=== PATIENT | female | born 1995 | race Caucasian/White ===

== ENCOUNTER 2018-02-27 23:50 | Inpatient (IN) | payer SELFPAY ==
[~2018-02-27] VITALS: Ht 165.1 cm; Wt 72.6 kg
[2018-02-28] VITALS (9 sets, daily range): BP systolic 96–127; BP diastolic 50–76; BMI 26.6
[2018-02-28 01:17] LABS: HEMATOCRIT 39.9 % (36.0-48.0); HEMOGLOBIN 13.7 g/dL (12-16); MCH 29.8 pg (26.0-34.0); MCHC 34.3 g/dL (31.0-37.0); MCV 86.9 fL (80.0-100.0); MEAN PLATELET VOLUME 9.1 fL (7.4-10.4); PLATELET COUNT 342 10x3/uL (130-400); RBC 4.59 10x6/uL (4.00-5.40); RDW 12.7 % (11.5-14.5); WBC 23.8 10x3/uL (4.8-10.8)
[2018-02-28 01:25] LABS: ALBUMIN 4.1 g/dL (3.4-5.0); ALKALINE PHOSPHATASE 53 U/L (46-116); ALT (SGPT) 20 U/L (10-68); AMYLASE - SERUM 67 U/L (25-115); BILIRUBIN - TOTAL 1.02 mg/dL (0.2-1.3); CALC OSMOLALITY 272 mosm/kg (275-300); CALCIUM 8.5 mg/dL (8.5-10.1); CHLORIDE - SERUM 102 mmol/L (98-107); CREATININE - SERUM 0.8 mg/dL (0.6-1.3); GLUCOSE 121 mg/dL (74-106); LIPASE 88 U/L (73-393); PROTEIN - SERUM 7.6 g/dL (6.4-8.2); SODIUM 137 mmol/L (136-145); UREA NITROGEN 8 mg/dL (7-18); eGFR NON AFRICAN AMERICAN > 90 mL/min (90-120)
[2018-02-28 01:28] LABS: APPEARANCE HAZY (CLEAR); BILIRUBIN NEGATIVE (NEGATIVE); COLOR YELLOW (YELLOW); GLUCOSE NEGATIVE (NEGATIVE); KETONE SMALL mg/dL (NEGATIVE); NITRITE NEGATIVE (NEGATIVE); PROTEIN TRACE mg/dL (NEGATIVE); UROBILINOGEN NORMAL (NORMAL)
[2018-02-28 01:29] LABS: BACTERIA FEW /hpf (NONE SEEN); EPITHELIAL CELLS 0-5 /hpf (0-5); MUCUS >1+ /lpf (NONE SEEN)
[2018-02-28 01:40] LABS: LYMPHOCYTES 11 % (15-50); MONOCYTES 3 % (2-11); NEUTROPHILS 86 % (40-80); PLATELET ESTIMATE NORMAL
[2018-02-28 03:15] LABS: HCG SERUM NEGATIVE (NEGATIVE)
[2018-03-01 04:33] LABS: BASOPHILS 0.2 % (0-2); EOSINOPHILS 1.1 % (0-7); HEMATOCRIT 34.3 % (36.0-48.0); HEMOGLOBIN 11.3 g/dL (12-16); IMMATURE GRANULOCYTES 0.2 % (0-5); LYMPHOCYTES 32.2 % (15-50); MCHC 32.9 g/dL (31.0-37.0); MCV 87.9 fL (80.0-100.0); MEAN PLATELET VOLUME 9.5 fL (7.4-10.4); MONOCYTES 6.5 % (2-11); NEUTROPHILS 59.8 % (40-80); RDW 13.1 % (11.5-14.5)
[2018-03-01 04:34] LABS: PLATELET COUNT 253 10x3/uL (130-400); WBC 11.8 10x3/uL (4.8-10.8)
[2018-03-01 04:57] LABS: ALBUMIN 3.1 g/dL (3.4-5.0); ALKALINE PHOSPHATASE 38 U/L (46-116); ALT (SGPT) 16 U/L (10-68); BILIRUBIN - TOTAL 1.19 mg/dL (0.2-1.3); CALC OSMOLALITY 272 mosm/kg (275-300); CALCIUM 7.8 mg/dL (8.5-10.1); CARBON DIOXIDE 25.2 mmol/L (21.0-32.0); CHLORIDE - SERUM 106 mmol/L (98-107); CREATININE - SERUM 0.7 mg/dL (0.6-1.3); GLUCOSE 85 mg/dL (74-106); POTASSIUM - SERUM 3.5 mmol/L (3.5-5.1); PROTEIN - SERUM 5.9 g/dL (6.4-8.2); SODIUM 138 mmol/L (136-145); T4 THYROXIN - FREE 1.04 ng/dL (0.76-1.46); THYROID STIMULATING HORMONE 2.09 uIU/mL (0.36-3.74); UREA NITROGEN 6 mg/dL (7-18); eGFR NON AFRICAN AMERICAN > 90 mL/min (90-120)
[2018-03-01 09:23] VITALS: BP 105/61
[2018-03-01 12:25] VITALS: BP 115/73
[2018-03-01 12:46] VITALS: Ht 165.1 cm; Wt 72.6 kg
[2018-03-01 14:03] LABS: APPEARANCE HAZY (CLEAR); BACTERIA FEW /hpf (NONE SEEN); BILIRUBIN NEGATIVE (NEGATIVE); COLOR DK YELLOW (YELLOW); EPITHELIAL CELLS 0-5 /hpf (0-5); GLUCOSE NEGATIVE (NEGATIVE); KETONE MODERATE mg/dL (NEGATIVE); NITRITE NEGATIVE (NEGATIVE); PROTEIN NEGATIVE (NEGATIVE); RED CELLS - URINE 25-50 /hpf (0-5); UROBILINOGEN NORMAL (NORMAL); WHITE CELLS - URINE OCC /hpf (0-5)
[2018-03-01 14:04] LABS: MUCUS >1+ /lpf (NONE SEEN)
[2018-03-01 17:02] VITALS: BP 117/59
[2018-03-02 04:16] LABS: HEMATOCRIT 35.4 % (36.0-48.0); HEMOGLOBIN 12.1 g/dL (12-16); MCH 29.4 pg (26.0-34.0); MCHC 34.2 g/dL (31.0-37.0); MCV 86.1 fL (80.0-100.0); NEUTROPHILS 56.5 % (40-80); PLATELET COUNT 263 10x3/uL (130-400); RBC 4.11 10x6/uL (4.00-5.40); RDW 12.6 % (11.5-14.5); WBC 9.6 10x3/uL (4.8-10.8)
[2018-03-02 04:29] LABS: ALBUMIN 3.3 g/dL (3.4-5.0); ALKALINE PHOSPHATASE 42 U/L (46-116); ALT (SGPT) 18 U/L (10-68); BILIRUBIN - TOTAL 1.54 mg/dL (0.2-1.3); CALC OSMOLALITY 276 mosm/kg (275-300); CALCIUM 7.6 mg/dL (8.5-10.1); CARBON DIOXIDE 23.8 mmol/L (21.0-32.0); CHLORIDE - SERUM 106 mmol/L (98-107); CREATININE - SERUM 0.8 mg/dL (0.6-1.3); GLUCOSE 121 mg/dL (74-106); MAGNESIUM - SERUM 1.7 mg/dL (1.8-2.4); PHOSPHOROUS 2.1 mg/dL (2.5-4.9); PROTEIN - SERUM 6.3 g/dL (6.4-8.2); SODIUM 139 mmol/L (136-145); UREA NITROGEN 7 mg/dL (7-18); eGFR NON AFRICAN AMERICAN > 90 mL/min (90-120)
[2018-03-02 04:31] LABS: POTASSIUM - SERUM 2.9 mmol/L (3.5-5.1)
[2018-03-02 04:45] VITALS: BP 96/48
[2018-03-02 08:52] VITALS: BP 89/44
[2018-03-02 15:46] VITALS: BP 105/53
[2018-03-03 01:00] VITALS: BP 113/75
[2018-03-03 05:04] VITALS: BP 124/80
[2018-03-03 05:29] LABS: BASOPHILS 0.2 % (0-2); EOSINOPHILS 3.5 % (0-7); HEMATOCRIT 35.4 % (36.0-48.0); HEMOGLOBIN 11.9 g/dL (12-16); IMMATURE GRANULOCYTES 0.3 % (0-5); MCHC 33.6 g/dL (31.0-37.0); MCV 86.3 fL (80.0-100.0); MEAN PLATELET VOLUME 9.6 fL (7.4-10.4); MONOCYTES 6.9 % (2-11); NEUTROPHILS 52.1 % (40-80); PLATELET COUNT 272 10x3/uL (130-400); RDW 12.4 % (11.5-14.5); WBC 9.5 10x3/uL (4.8-10.8)
[2018-03-03 05:51] LABS: ALBUMIN 3.2 g/dL (3.4-5.0); ALKALINE PHOSPHATASE 44 U/L (46-116); ALT (SGPT) 21 U/L (10-68); BILIRUBIN - TOTAL 1.09 mg/dL (0.2-1.3); CALCIUM 7.9 mg/dL (8.5-10.1); CARBON DIOXIDE 25.7 mmol/L (21.0-32.0); CHLORIDE - SERUM 106 mmol/L (98-107); CREATININE - SERUM 0.8 mg/dL (0.6-1.3); GLUCOSE 102 mg/dL (74-106); MAGNESIUM - SERUM 1.8 mg/dL (1.8-2.4); PROTEIN - SERUM 6.3 g/dL (6.4-8.2); SODIUM 138 mmol/L (136-145); eGFR NON AFRICAN AMERICAN > 90 mL/min (90-120)
[2018-03-03 05:53] LABS: CALC OSMOLALITY 272 mosm/kg (275-300); PHOSPHOROUS 2.9 mg/dL (2.5-4.9); POTASSIUM - SERUM 3.8 mmol/L (3.5-5.1); UREA NITROGEN 4 mg/dL (7-18)
[2018-03-03 08:44] VITALS: BP 134/65
[2018-03-03 09:30] VITALS: BP 106/57
[2018-03-03] MEDS ORDERED: OMEPRAZOLE20 M1 PO (11:06)
[2018-03-03] MEDS ORDERED: PHENADOZ25 MG/SUPP RC (11:06)
== END 2018-03-03 13:02 | disposition home or self-care (01) | DRG 392 ==
LOC: OBSVTIME → D.ER 23:50 → D.MS 02-28 05:16 → D.EDHOLD 02-28 05:16 → D.ER 02-28 05:16 → D.EDHOLD 02-28 05:16 → OBSVTIME 02-28 05:16 → D.EDHOLD 02-28 14:29 → D.MS 02-28 14:29
PROVIDERS: Family Medicine
DX: K29.00 Acute gastritis without bleeding (principal); K44.9 Diaphragmatic hernia without obstruction or gangrene; K21.9 Gastro-esophageal reflux disease without esophagitis; E87.6 Hypokalemia

== ENCOUNTER 2019-01-18 19:09 | Inpatient (IN) | payer SELFPAY ==
[~2019-01-18] VITALS: Ht 165.1 cm; Wt 72.6 kg
[~2019-01-18 19:09] MED LIST: OMEPRAZOLE20 M1 PO; PHENADOZ25 MG/SUPP RC
[2019-01-18 19:51] LABS: APPEARANCE CLEAR (CLEAR); BILIRUBIN NEGATIVE (NEGATIVE); COLOR YELLOW (YELLOW); GLUCOSE NEGATIVE (NEGATIVE); KETONE LARGE mg/dL (NEGATIVE); NITRITE NEGATIVE (NEGATIVE); PROTEIN NEGATIVE (NEGATIVE); SPECIFIC GRAVITY 1.025 (1.005-1.020); UROBILINOGEN NORMAL (NORMAL)
[2019-01-18 19:54] LABS: EPITHELIAL CELLS 0-5 /hpf (0-5); WHITE CELLS - URINE OCC /hpf (0-5)
[2019-01-18 19:55] LABS: BACTERIA FEW /hpf (NONE SEEN); YEAST OCC /hpf (NONE SEEN)
[2019-01-18 19:56] LABS: MUCUS >1+ /lpf (NONE SEEN)
[2019-01-18 20:08] LABS: BASOPHILS 0.1 % (0-2); EOSINOPHILS 0 % (0-7); HEMATOCRIT 38.3 % (36.0-48.0); IMMATURE GRANULOCYTES 0.3 % (0-5); LYMPHOCYTES 8.5 % (15-50); MCH 29.4 pg (26.0-34.0); MCHC 33.9 g/dL (31.0-37.0); MCV 86.7 fL (80.0-100.0); MEAN PLATELET VOLUME 8.7 fL (7.4-10.4); MONOCYTES 2.2 % (2-11); NEUTROPHILS 88.9 % (40-80); PLATELET COUNT 324 10x3/uL (130-400); RBC 4.42 10x6/uL (4.00-5.40); RDW 13.4 % (11.5-14.5); WBC 14.4 10x3/uL (4.8-10.8)
[2019-01-18 20:59] LABS: ALBUMIN 4.2 g/dL (3.4-5.0); ALKALINE PHOSPHATASE 54 U/L (46-116); ALT (SGPT) 13 U/L (10-68); AMYLASE - SERUM 44 U/L (25-115); BILIRUBIN - TOTAL 1.12 mg/dL (0.2-1.3); CALC OSMOLALITY 274 mosm/kg (275-300); CALCIUM 8.8 mg/dL (8.5-10.1); CARBON DIOXIDE 21.3 mmol/L (21.0-32.0); CHLORIDE - SERUM 103 mmol/L (98-107); CREATININE - SERUM 0.7 mg/dL (0.6-1.3); GLUCOSE 105 mg/dL (74-106); LIPASE 70 U/L (73-393); POTASSIUM - SERUM 4.1 mmol/L (3.5-5.1); PROTEIN - SERUM 7.8 g/dL (6.4-8.2); SODIUM 138 mmol/L (136-145); UREA NITROGEN 9 mg/dL (7-18); eGFR NON AFRICAN AMERICAN > 90 mL/min (90-120)
[2019-01-19] VITALS (7 sets, daily range): BP systolic 90–119; BP diastolic 45–81; Ht 165.1 cm; Wt 72.6 kg
--- NOTE | 2019-01-19 00:02 | NUR ---
PT HAS ARRIVED TO FLOOR BY BED FROM ER, REPORT TAKEN FROM MARTHA RICE RN. INTRODUCED SELF TO PT. PT DENIES FURTHER NEEDS AT THIS TIME. BED IN LOW POSITION. RIGHT AC PIV INFUSING NORMAL SALINE AND ONDANSETRON ORDERED. CALL LIGHT IN REACH. WILL CTM.
--- NOTE | 2019-01-19 04:32 | NUR ---
I have reviewed this patient and I concur with the Shift Assessment completed by the Licensed Practical Nurse today this shift.
[2019-01-19 05:14] LABS: BASOPHILS 0.1 % (0-2); EOSINOPHILS 0.1 % (0-7); HEMATOCRIT 32.8 % (36.0-48.0); IMMATURE GRANULOCYTES 0.1 % (0-5); LYMPHOCYTES 24.5 % (15-50); MCHC 33.5 g/dL (31.0-37.0); MCV 86.5 fL (80.0-100.0); MEAN PLATELET VOLUME 8.8 fL (7.4-10.4); MONOCYTES 6.7 % (2-11); NEUTROPHILS 68.5 % (40-80); PLATELET COUNT 292 10x3/uL (130-400); RBC 3.79 10x6/uL (4.00-5.40); RDW 13.5 % (11.5-14.5); WBC 14.1 10x3/uL (4.8-10.8)
[2019-01-19 05:27] LABS: ALKALINE PHOSPHATASE 40 U/L (46-116); ALT (SGPT) 11 U/L (10-68); BILIRUBIN - TOTAL 1.12 mg/dL (0.2-1.3); CALC OSMOLALITY 274 mosm/kg (275-300); CALCIUM 8.1 mg/dL (8.5-10.1); CARBON DIOXIDE 23.9 mmol/L (21.0-32.0); CHLORIDE - SERUM 106 mmol/L (98-107); CREATININE - SERUM 0.6 mg/dL (0.6-1.3); GLUCOSE 81 mg/dL (74-106); POTASSIUM - SERUM 3.7 mmol/L (3.5-5.1); SODIUM 139 mmol/L (136-145); UREA NITROGEN 7 mg/dL (7-18); eGFR NON AFRICAN AMERICAN > 90 mL/min (90-120)
[2019-01-19 05:43] LABS: ALBUMIN 3.1 g/dL (3.4-5.0)
--- NOTE | 2019-01-19 07:00 | NUR ---
RECEIVED REPORT. ASSUMED CARE OF PATIENT. CALL LIGHT WITHIN REACH. RESTING WITH EYES CLOSED. EASILY AROUSED. RESP EVEN AND UNLABORED. NO DISTRESS. IV FLUIDS INFUSING ORDERED. NO DISTRESS.
--- NOTE | 2019-01-19 08:00 | NUR ---
PATIENT HAS ORDER FOR TELEMETRY, HOWEVER, WE HAVE NO TELEMETRY UNIT AVAILABLE AT THIS TIME. TELEMETRY NOTIFIED OF ORDER AND WHEN A UNIT BECOMES AVAILABLE, UNIT WILL BE PROVIDED FOR PATIENT.
--- NOTE | 2019-01-19 09:13 | NUR ---
MEDICATED FOR PAIN AT THIS TIME. NO DISTRESS. CALL LIGHT WITHIN REACH.
[2019-01-19 10:05] LABS: HCG URINE NEGATIVE (NEGATIVE)
--- NOTE | 2019-01-19 10:31 | MORECARE ---
CASE MANAGEMENT DISCHARGE SUMMARY PATIENT: EZRA WILKS N UNIT: [id number] ADM DATE: 01/18/19 AGE: 23 : [birth year] SEX: F ROOM/BED: D.2133 AUTHOR: LARISA RICO PHYSICIAN: REFERRING PHYSICIAN: DIAMOND LEVINE MD DATE OF SERVICE: 01/19/19 Discharge Plan Patient Name: EZRA WILKS Facility: [facility]:[place] : 1995 Planned Disposition: Home Anticipated Discharge Date: Discharge Date: Expected LOS: Initial Reviewer: [email or web address] Initial Review Date: 01/18/2019 Generated: 01/19/19 11:31 am DCPIA - Discharge Planning Initial Assessment Updated by [email or web address]: iLssette Kennedy on 01/19/19 10:31 am * Is the patient Alert and Oriented? Yes * How many steps to enter\exit or inside your home? * PCP NONE * Pharmacy [facility] * Preadmission Environment Home with Family * ADLs Independent * List name and contact numbers for known caregivers / representatives who currently or will assist patient after discharge: MOTHER SUSHANT [phone] * Verbal permission to speak to the caregivers and representatives has been obtained from the patient. N/A * Additional services required to return to the preadmission environment? No * Can the patient safely return to the preadmission environment? Yes * Has this patient been hospitalized within the prior 30 days at any hospital? No Patient Name: EZRA WILKS Page [id number] at 1031 All edits/amendments must be made on the electronic document DICTATION DATE: 01/19/19 1031 RESIDENTIAL MONITOR: YESENIA 01/19/19 1031 RPT#: [id number] DC DATE: STATUS: ADM IN [facility] [address] [place] [address] END OF REPORT
--- NOTE | 2019-01-19 10:38 | MORECARE ---
CASE MANAGEMENT DISCHARGE SUMMARY PATIENT: EZRA WILKS UNIT: [id number] ADM DATE: 01/18/19 AGE: 23 : [birth year] SEX: F ROOM/BED: D.9773 AUTHOR: LARISA RICO PHYSICIAN: REFERRING PHYSICIAN: DIAMOND LEVINE MD DATE OF SERVICE: 01/19/19 Discharge Plan Patient Name: EZRA WILKS Facility: [facility]:[place] : 1995 Planned Disposition: Home Anticipated Discharge Date: Discharge Date: Expected LOS: Initial Reviewer: [email or web address] Initial Review Date: 01/18/2019 Generated: 01/19/19 11:38 am Comments DCP- Discharge Planning Updated by [email or web address]: Lissette Kennedy on 01/19/19 9:[address] Patient Name: EZRA WILKS Admission Status: ER Accout number: [id number] Admission Date: 01-18-2019 : 1995 Admission Diagnosis: Attending: DIAMOND HOLDER Current LOS: 1 Anticipated DC Date: Planned Disposition: Home Primary Insurance: UNINSURED DISCOUNT PLAN Discharge Planning Comments: CM MET WITH PATIENT FOR ASSESSMENT. PT LIVES INDEPENDENTLY WITH SISTER. STATES HOME WILL BE HER DC PLAN AND FEELS LIKE THIS IS A SAFE DC. PT STATES SHE HAS NO CM NEEDS AT THIS TIME. CM WILL CONTINUE TO FOLLOW Nutrition Therapist: Lissette Kennedy DCPIA - Discharge Planning Initial Assessment Updated by [email or web address]: Lissette Kennedy on 01/19/19 10:31 am * Is the patient Alert and Oriented? Yes * How many steps to enter\exit or inside your home? * PCP NONE * Pharmacy [facility] * Preadmission Environment Home with Family * ADLs Independent * List name and contact numbers for known caregivers / representatives who currently or will assist patient after discharge: MOTHER SUSHANT [phone] * Verbal permission to speak to the caregivers and representatives has been obtained from the patient. N/A * Additional services required to return to the preadmission environment? No * Can the patient safely return to the preadmission environment? Yes * Has this patient been hospitalized within the prior 30 days at any hospital? No Last DP export: 01/19/19 9:31 a Patient Name: EZRA WILKS Page [id number] at 1038 All edits/amendments must be made on the electronic document DICTATION DATE: 01/19/19 1038 APPLICATIONS PROGRAMMER: YESENIA 01/19/19 1038 RPT#: [id number] DC DATE: STATUS: ADM IN [facility] [address] [place] [address] END OF REPORT
--- NOTE | 2019-01-19 11:55 | NUR ---
TELEMETRY APPLIED AT THIS TIME. NO DISTRESS.
--- NOTE | 2019-01-19 13:08 | NUR ---
[facility] HAS NOT YET HAD A BM. UNABLE TO COLLECT STOOL SPECIMEN. PATIENT IS NPO,
--- NOTE | 2019-01-19 19:55 | NUR ---
EVENING ROUNDS COMPLETED. REPORT RECEIVED. PT SITTING UP IN BED WITH EYES OPEN, RR EVEN AND UNLABORED. BED IN LOW POSITION. NO S/S OF DISTRESS NOTED. RT AC PIV INFUSING NORMAL SALINE AND ONDANSETRON ORDERED. INTRODUCED SELF TO PT. PT DENIES FURTHER NEEDS AT THIS TIME. 70 SINUS W/ PACS ON TELEMETRY. CALL LIGHT IN REACH. WILL CTM. CPOC.
--- NOTE | 2019-01-19 21:45 | NUR ---
ADMINISTERED ORDERED ANALGESIC FOR COMPLAINTS OF PAIN IN UPPER ABODMEN, PT STATES PAIN OF A 7 ON A SCALE OF 0-10.
[2019-01-20] VITALS: BP 102/62
--- NOTE | 2019-01-20 00:57 | NUR ---
PT LYING IN BED WITH EYES OPEN, RR EVEN AND UNLABORED. BED IN LOW POSITION. NO S/S OF DISTRESS NOTED. RT AC PIV INFUSING NS AND ONDANSETRON ORDERED. 83 SINUS ON TELEMETRY. CALL LIGHT IN REACH. WILL CTM.
[2019-01-20 04:00] VITALS: BP 122/75
--- NOTE | 2019-01-20 04:58 | NUR ---
I have reviewed this patient and I concur with the Shift Assessment completed by the Licensed Practical Nurse today this shift.
--- NOTE | 2019-01-20 05:43 | NUR ---
PT SITTING UP IN BED WITH EYES OPEN, RR EVEN AND UNLABORED. BED IN LOW POSITION. REFUSED MORNING MEDICATIONS DUE TO BOUTS OF NAUSEA. RIGHT AC PIV INFUSING NS ORDERED. CALL LIGHT IN REACH. WILL CTM.
[2019-01-20 06:10] LABS: BASOPHILS 0.2 % (0-2); EOSINOPHILS 0 % (0-7); HEMATOCRIT 35.8 % (36.0-48.0); HEMOGLOBIN 11.9 g/dL (12-16); IMMATURE GRANULOCYTES 0.2 % (0-5); LYMPHOCYTES 11.6 % (15-50); MCH 28.9 pg (26.0-34.0); MCHC 33.2 g/dL (31.0-37.0); MCV 86.9 fL (80.0-100.0); MONOCYTES 2.9 % (2-11); NEUTROPHILS 85.1 % (40-80); PLATELET COUNT 304 10x3/uL (130-400); RBC 4.12 10x6/uL (4.00-5.40); RDW 13.4 % (11.5-14.5)
[2019-01-20 06:27] LABS: ALBUMIN 3.5 g/dL (3.4-5.0); ALKALINE PHOSPHATASE 47 U/L (46-116); ALT (SGPT) 12 U/L (10-68); BILIRUBIN - TOTAL 1.66 mg/dL (0.2-1.3); CALCIUM 7.9 mg/dL (8.5-10.1); CARBON DIOXIDE 19.6 mmol/L (21.0-32.0); CHLORIDE - SERUM 104 mmol/L (98-107); CREATININE - SERUM 0.7 mg/dL (0.6-1.3); PROTEIN - SERUM 6.6 g/dL (6.4-8.2); SODIUM 138 mmol/L (136-145); UREA NITROGEN 8 mg/dL (7-18); eGFR NON AFRICAN AMERICAN > 90 mL/min (90-120)
[2019-01-20 06:35] LABS: CALC OSMOLALITY 271 mosm/kg (275-300); GLUCOSE 70 mg/dL (74-106)
--- NOTE | 2019-01-20 06:57 | NUR ---
LAB CALLED AND REPORTED GLUCOSE OF 70
--- NOTE | 2019-01-20 07:00 | NUR ---
RECEIVED REPORT. ASSUMED CARE OF PATIENT. ALERT/ORIENTED. DENIES CALMY, DIAPHORESIS, JITTERYNESS. RESTING IN BED WITH EYES OPEN. IV FLUIDS INFUSING ORDERED. NO DISTRESS. CALL LIGHT WITHIN REACH.
--- NOTE | 2019-01-20 07:01 | NUR ---
PAGEGarrett NOLEN AND RECIEVED NEW ORDERS FOR EP AND HYPOGLYCEMIC PROTOCOL. ORDERS ENTERED.
[2019-01-20 08:30] VITALS: BP 95/54
--- NOTE | 2019-01-20 08:31 | NUR ---
FSBS 93 AT THIS TIME. RECHECKED AFTER TREATING WITH 1/2 AMP DEXTROSE
--- NOTE | 2019-01-20 10:40 | NUR ---
PATIENT COMPLAINS OF N/V AND ABD PAIN. MEDICATED FOR PAIN WITH MORPHINE. PATIENT CONTINUES ON ZOFRAN DRIP AT 4.7 CONTINUOUSLY AND IF FLUIDS FOR HYDRATION. COMPLAINS OF PRESSURE TYPE PAIN WHERE TRANSVERSE COLON LYES. BS X 4, SOFT ABD.
[2019-01-20 11:42] VITALS: BP 112/58; BP 136/77
--- NOTE | 2019-01-20 13:59 | NUR ---
20 GAUGE IV PLACED TO LEFT FOREARM X 1 STICK. GOOD BLOOD RETURN, EASY FLUSH.TAPED DATED AND SECURED. 2ND IV SITE NEEDED PROTONIX AND ZOFRAN ARE NOT COMPATIBLE. PROTONIX AND NS INFUSING TO RIGHT AC AND ZOFRAN INFUSING TO LEFT FOREARM AT THIS TIME.
--- NOTE | 2019-01-20 17:36 | NUR ---
PATIENT IS FINALLY RESTING AFTER BEING PLACED ON PROTONIX DRIP EARLIER. NO N/V OR DRY HEAVING. RESTING WITH EYES CLOSED.
[2019-01-20 18:49] VITALS: BP 112/65
[2019-01-20 20:00] VITALS: BP 99/52
--- NOTE | 2019-01-20 20:23 | NUR ---
EVENING ROUNDS COMPLETED. REPORT RECEIVED. PT LYING ON RIGHT SIDE IN BED WITH EYES OPEN, RR EVEN AND UNLABORED. NO S/S OF DISTRESS NOTED. LFA INFUSING NS ORDERED. AT BEDSIDE. INTRODUCED SELF TO PT. PT DENIES FURTHER NEEDS AT THIS TIME. 87 SINUS ON TELEMETRY. CALL LIGHT IN REACH. WILL CTM.
--- NOTE | 2019-01-20 20:27 | NUR ---
EVENING ROUNDS COMPLETED. REPORT RECEIVED. PT SITTING UP IN BED WITH EYES OPEN, RR EVEN AND UNLABORED. BED IN LOW POSITION. RT AC INFUSING NORMAL SALINE AND PROTONIX. LFA INFUSING ONDANSETRON ORDERED. 76 SINUS ON TELEMETRY. INTRODUCED SELF TO PT. PT DENIES FURTHER NEEDS AT THIS TIME. CALL LIGHT IN REACH. WILL CTM.
--- NOTE | 2019-01-20 23:36 | NUR ---
TREATED PT BLOOD SUGAR OF 66 PER HYPOGLYCEMIA PROTOCOL.
[2019-01-20 23:56] LABS: CALCIUM 7.8 mg/dL (8.5-10.1); CARBON DIOXIDE 22.3 mmol/L (21.0-32.0); CHLORIDE - SERUM 103 mmol/L (98-107); CREATININE - SERUM 0.7 mg/dL (0.6-1.3); MAGNESIUM - SERUM 1.4 mg/dL (1.8-2.4); POTASSIUM - SERUM 3.6 mmol/L (3.5-5.1); SODIUM 138 mmol/L (136-145); eGFR NON AFRICAN AMERICAN > 90 mL/min (90-120)
[2019-01-20 23:57] LABS: CALC OSMOLALITY 273 mosm/kg (275-300); GLUCOSE 114 mg/dL (74-106); UREA NITROGEN 5 mg/dL (7-18)
[2019-01-21 00:18] VITALS: BP 121/79
--- NOTE | 2019-01-21 01:04 | NUR ---
PT LYING ON RIGHT SIDE IN BED WITH EYES CLOSED, RR EVEN AND UNLABORED. BED IN LOW POSITION. NO S/S OF DISTRESS NOTED. RECHECKED PT BLOOD SUGAR OF 94. CALL LIGHT IN REACH. WILL CTM.
--- NOTE | 2019-01-21 02:20 | NUR ---
ADMINISTERED ORDERED ANALGESIC FOR COMPLAINTS OF PAIN IN UPPER ABDOMEN, PT STATES PAIN OF 9 ON A SCALE OF 0-10.
[2019-01-21 04:00] VITALS: BP 116/68
--- NOTE | 2019-01-21 04:35 | NUR ---
I have reviewed this patient and I concur with the Shift Assessment completed by the Licensed Practical Nurse today this shift.
--- NOTE | 2019-01-21 05:17 | NUR ---
1.4 SERUM MAGNESIUM TREATED ORDERED ACCORDING TO ELECTROLYTE REPLACEMENT PROTOCOL. PT RESTING IN BED WITH EYES OPEN, DENIES FURTHER NEEDS AT THIS TIME. CALL LIGHT IN REACH. WILL CTM.
[2019-01-21 05:32] LABS: BASOPHILS 0.1 % (0-2); EOSINOPHILS 0.5 % (0-7); HEMATOCRIT 34.5 % (36.0-48.0); HEMOGLOBIN 12.2 g/dL (12-16); IMMATURE GRANULOCYTES 0.2 % (0-5); LYMPHOCYTES 22.2 % (15-50); MCHC 35.4 g/dL (31.0-37.0); MEAN PLATELET VOLUME 9.3 fL (7.4-10.4); MONOCYTES 4.8 % (2-11); NEUTROPHILS 72.2 % (40-80); PLATELET COUNT 310 10x3/uL (130-400); RBC 4.07 10x6/uL (4.00-5.40); WBC 12.8 10x3/uL (4.8-10.8)
[2019-01-21 05:42] LABS: MCV 84.8 fL (80.0-100.0)
[2019-01-21 06:11] LABS: ALBUMIN 3.4 g/dL (3.4-5.0); ALKALINE PHOSPHATASE 44 U/L (46-116); ALT (SGPT) 13 U/L (10-68); BILIRUBIN - TOTAL 2.12 mg/dL (0.2-1.3); CALC OSMOLALITY 262 mosm/kg (275-300); CALCIUM 8.3 mg/dL (8.5-10.1); CARBON DIOXIDE 20.7 mmol/L (21.0-32.0); CHLORIDE - SERUM 102 mmol/L (98-107); CREATININE - SERUM 0.6 mg/dL (0.6-1.3); POTASSIUM - SERUM 4.1 mmol/L (3.5-5.1); PROTEIN - SERUM 6.1 g/dL (6.4-8.2); SODIUM 134 mmol/L (136-145); UREA NITROGEN 5 mg/dL (7-18); eGFR NON AFRICAN AMERICAN > 90 mL/min (90-120)
[2019-01-21 06:13] LABS: GLUCOSE 64 mg/dL (74-106)
--- NOTE | 2019-01-21 06:26 | NUR ---
ADMINISTERED 1/2 AMP D50 FOR BLOOD SUGAR OF 64. WILL CTM.
--- NOTE | 2019-01-21 07:41 | NUR ---
PT RESTING IN BED. NO SIGNS OF DISTRESS.IV TO RIGHT AC PATENT NO REDNESS OR TENDERNESS. ON TELEMETRY 66 SR. DENIES ANY FURTHER NEED AT THIS TIME. CALL LIGHT IN REACH. BED LOW POSITION. NO FAMILY AT BEDSIDE AT THIS TIME.
[2019-01-21 08:28] VITALS: BP 112/75
[2019-01-21 10:13] LABS: % SATURATION 27 % (15-55); IRON 86 ug/dl (35-150); TOTAL IRON BIND CAPACITY 311 ug/dl (260-445); UNSAT IRON BIND CAPACITY 225 ug/dl (150-375)
[2019-01-21 12:58] VITALS: BP 135/84
--- NOTE | 2019-01-21 13:21 | NUR ---
I have reviewed this patient and I concur with the Shift Assessment completed by the Licensed Practical Nurse today this shift.
--- NOTE | 2019-01-21 13:30 | NUR ---
Nutrition follow-up: Pt advanced to clear liquids with very little po intake at this time labs reviewed WT: 160# Recommend starting ProcalAmine PPN if diet unable to advance past clears within [address] following.
[2019-01-21 17:28] VITALS: BP 122/68
--- NOTE | 2019-01-21 19:24 | NUR ---
RESUMING PATIENT CARE. PATIENT IS ALERT AND ORIENTED, RESTING COMFORTABLY IN BED. RESPIRATIONS ARE EVEN AND UNLABORED. NO S/S OF DISTRESS. NO C/O PAIN. CALL LIGHT WITHIN REACH. WILL CPOC.
[2019-01-21 20:43] VITALS: BP 125/81
[2019-01-22 00:04] VITALS: BP 119/75
[2019-01-22 04:12] VITALS: BP 143/86
[2019-01-22 06:39] LABS: BASOPHILS 0.2 % (0-2); EOSINOPHILS 0.9 % (0-7); HEMATOCRIT 35.2 % (36.0-48.0); HEMOGLOBIN 12.4 g/dL (12-16); IMMATURE GRANULOCYTES 0.2 % (0-5); LYMPHOCYTES 16.3 % (15-50); MCH 29.5 pg (26.0-34.0); MCHC 35.2 g/dL (31.0-37.0); MCV 83.8 fL (80.0-100.0); MONOCYTES 6.3 % (2-11); NEUTROPHILS 76.1 % (40-80); PLATELET COUNT 333 10x3/uL (130-400); WBC 12.6 10x3/uL (4.8-10.8)
--- NOTE | 2019-01-22 07:00 | NUR ---
RECEIVED REPORT. ASSUMED CARE OF PATIENT. RESTING IN BED WITH EYES CLOSED. RESP EVEN AND UNLABORED. IV FLUIDS INFUSING ORDERED. NO DISTRESS.
[2019-01-22 07:28] LABS: ALBUMIN 3.7 g/dL (3.4-5.0); ALKALINE PHOSPHATASE 45 U/L (46-116); ALT (SGPT) 16 U/L (10-68); BILIRUBIN - TOTAL 2.02 mg/dL (0.2-1.3); CARBON DIOXIDE 21.5 mmol/L (21.0-32.0); CREATININE - SERUM 0.7 mg/dL (0.6-1.3); GLUCOSE 80 mg/dL (74-106); PROTEIN - SERUM 6.8 g/dL (6.4-8.2); eGFR NON AFRICAN AMERICAN > 90 mL/min (90-120)
[2019-01-22 07:35] LABS: UREA NITROGEN 3 mg/dL (7-18)
[2019-01-22 08:17] LABS: CALC OSMOLALITY 267 mosm/kg (275-300); CHLORIDE - SERUM 101 mmol/L (98-107); POTASSIUM - SERUM 3.1 mmol/L (3.5-5.1); SODIUM 136 mmol/L (136-145)
[2019-01-22 08:42] VITALS: BP 118/72
--- NOTE | 2019-01-22 09:08 | NUR ---
MEDICATED WITH ZOFRAN AND MORPHINE AT THIS TIME. FSBS 72. APPLE JUICE PROVIDED. PATIENT HAS CLEAR LIQUID TRAY AT BEDSIDE THAT HAS NOT BEEN TOUCHED DUE TO NAUSEA. PATIENT STATES THE PAIN IS BETTER AFTER MORPHINE BUT THE PAIN IN LEFT SIDE OF ABD WHERE SIGMOID/DESCENDING COLON LIES IS MORE PAINFUL TODAY THAN YESTERDAY. RESP EVEN AND UNLABORED.
--- NOTE | 2019-01-22 09:26 | NUR ---
REPLACEMENT K+ ADMINISTERED AT THIS TIME.
--- NOTE | 2019-01-22 10:38 | NUR ---
NEW ORDER RECIEVED TO D/C MORPHINE. START NORCO 7.5/325 Q 4 HOURS PRN PAIN MORPHINE NOT EFFECTIVE FOR ABD PAIN PER PATIENT.
--- NOTE | 2019-01-22 10:48 | NUR ---
MEDICATED FOR PAIN AT THIS TIME. NO DISTRESS.
[2019-01-22 12:13] VITALS: BP 125/76
--- NOTE | 2019-01-22 13:14 | NUR ---
RESTING IN BED WITH EYES CLOSED. EASILY AROUSED. CALL LIGHT WITHIN REACH. IV FLUIDS INFUSING ORDERED. NO DISTRESS.
--- NOTE | 2019-01-22 14:53 | NUR ---
FSBS 74. MEDICATED FOR PAIN AND ORDERED PATIENT A BOOST NUTRITIONAL SUPPLEMENT PER HER REQUEST. NO DISTRESS.
[2019-01-22 15:50] VITALS: BP 122/75
--- NOTE | 2019-01-22 15:55 | NUR ---
GI NURSE PRACTITIONER HERE FOR PATIENT CONSULT.
--- NOTE | 2019-01-22 17:20 | NUR ---
SITTING IN BED, SMILING. PATIENT FEELING MUCH BETTER NOW THAT THE PAIN IS BETTER CONTROLLED WITH THE NORCO. CALL LIGHT WITHIN REACH. NO DISTRESS.
--- NOTE | 2019-01-22 18:52 | NUR ---
MEDICATED FOR PAIN AT THIS TIME. NO DISTRESS. AWAITING ON ULTRASOUND OF RIGHT UPPER QUAD.
--- NOTE | 2019-01-22 19:00 | NUR ---
PATIENT SITTING UP IN BED. PATIENT HAS NO COMPLAINTS AT THIS TIME. NO DISTRESS NOTED.
[2019-01-22 20:00] VITALS: BP 126/75
[2019-01-23] VITALS (7 sets, daily range): BP systolic 100–137; BP diastolic 56–83
--- NOTE | 2019-01-23 01:17 | NUR ---
PATIENT COMPLAINS ON NAUSEA. PATIENT GIVEN ZOFRAN. NO OTHER COMPLAINTS AT THIS TIME. NO DISTRESS NOTED.
--- NOTE | 2019-01-23 02:43 | NUR ---
I have reviewed this patient and I concur with the Shift Assessment completed by the Licensed Practical Nurse today this shift.
[2019-01-23 06:59] LABS: BASOPHILS 0.2 % (0-2); EOSINOPHILS 0.9 % (0-7); HEMOGLOBIN 11.9 g/dL (12-16); IMMATURE GRANULOCYTES 0.3 % (0-5); LYMPHOCYTES 22.1 % (15-50); MCH 29.3 pg (26.0-34.0); MCV 83.7 fL (80.0-100.0); MEAN PLATELET VOLUME 9.3 fL (7.4-10.4); MONOCYTES 6.6 % (2-11); NEUTROPHILS 69.9 % (40-80); PLATELET COUNT 330 10x3/uL (130-400); RBC 4.06 10x6/uL (4.00-5.40); RDW 12.9 % (11.5-14.5); WBC 11.5 10x3/uL (4.8-10.8)
[2019-01-23 07:14] LABS: ALBUMIN 3.4 g/dL (3.4-5.0); ALKALINE PHOSPHATASE 42 U/L (46-116); BILIRUBIN - TOTAL 1.43 mg/dL (0.2-1.3); CALCIUM 7.9 mg/dL (8.5-10.1); CARBON DIOXIDE 20.1 mmol/L (21.0-32.0); CHLORIDE - SERUM 102 mmol/L (98-107); CREATININE - SERUM 0.6 mg/dL (0.6-1.3); POTASSIUM - SERUM 3.2 mmol/L (3.5-5.1); PROTEIN - SERUM 6.3 g/dL (6.4-8.2); SODIUM 136 mmol/L (136-145); UREA NITROGEN 3 mg/dL (7-18); eGFR NON AFRICAN AMERICAN > 90 mL/min (90-120)
[2019-01-23 07:15] LABS: ALT (SGPT) 11 U/L (10-68); CALC OSMOLALITY 266 mosm/kg (275-300); GLUCOSE 65 mg/dL (74-106)
--- NOTE | 2019-01-23 09:09 | NUR ---
RECIEVED REPORT. CHECKED BLOOD SUGAR. IT IS 60. GIVING ONE TUBE OF GLUCOSE ORDERED PER PROTOCOL AT THIS TIME.
--- NOTE | 2019-01-23 09:39 | NUR ---
PATIENT IS NAUSEATED. GAVE ZOFRAN PRN ORDERED. SHE IS COUGHING AND GAGGING , AND HAS HAD A 25ML CLEAR EMISIS.
--- NOTE | 2019-01-23 10:50 | NUR ---
RECHECKED BLOOD SUGAR. IT IS 85 AND THE PATIENT NAUSEA IS REDUCED.
--- NOTE | 2019-01-23 14:03 | NUR ---
Nutrition Follow-up: Pt reports N/V this AM with diarrhea. Did not tolerate Boost. Diet: Full Liquid PO intake: 15% avg meal intake on 01/22 Last BM: 01/23 No new wt Labs noted: Glu 65, K+ 3.2, Alb 3.4, Ca 7.9 Meds noted: Reglan, Zofran, Protonix, KDur, NS 0.9% @ 125 mL/hr Rec ADAT as medically feasible. [place] food preferences within diet order. If PO intake remains poor, may consider Procalamine. RD following.
--- NOTE | 2019-01-23 17:50 | NUR ---
PATIENT IS SITTING UP IN BED WATCHING TV. SHE STATES THAT HER NAUSEA IS CONTROLLED. GAVE 2 KDUR TABS TO TREAT HER LOW POTASSIUM. WILL ORDER A RECHECK FOLLOWING PROTOCOL. PATIENT REPORTS THAT SHE WAS ABLE TO TAKE THE PILLS AND FEELS LIKE SHE IS GOING TO KEEP THEM DOWN THIS TIME.
--- NOTE | 2019-01-23 19:20 | NUR ---
EVENING ROUNDS MADE. PT IS AAOX4, VSS. NO SIGNS OF DISTRESS. PT IS LAYING IN BED WATCHING TV. NO C/O PAIN AT THIS TIME. WILL CONT WITH POC.
--- NOTE | 2019-01-23 22:34 | NUR ---
PT ASKED ANOTHER NURSE TO BE DISCONNECTED FROM HER IV SO THAT SHE COULD WALK AROUND THE NURSES STATION. PT WAS TOLD NOT TO LEAVE THE FLOOR, PT STATED "OH I WONT, I JUST WANT TO WALK BECAUSE I AM HURTING." PT WAS DISCONNECTED FROM HER IV AT 2213. AT 2224 I WENT TO LOOK FOR PT. PT WAS NOT IN ROOM, NOR WAS SHE WALKING AROUND THE NURSES STATION. AT 2234 PT WAS SEEN ENTERING BACK ONTO THE FLOOR AND HEADED BACK TO HER ROOM. PT INSTRUCTED NOT TO LEAVE THE FLOOR AGAIN WITHOUT NOTIFYING ANYONE ALONG WITH HOW LONG SHE PLANS ON BEING GONE. PT UNDERSTOOD. WILL CONT WITH POC.
--- NOTE | 2019-01-24 02:06 | NUR ---
PT LAYING IN BED. BLOOD SUGAR 76 AT THIS TIME. NO C/O PAIN OR NAUSEA AT THIS TIME. WILL CONT WITH POC.
[2019-01-24 04:30] VITALS: BP 114/75
[2019-01-24 06:08] LABS: BASOPHILS 0.2 % (0-2); EOSINOPHILS 1.7 % (0-7); HEMATOCRIT 32.5 % (36.0-48.0); HEMOGLOBIN 11.5 g/dL (12-16); IMMATURE GRANULOCYTES 0.2 % (0-5); LYMPHOCYTES 26.7 % (15-50); MCH 29.4 pg (26.0-34.0); MCHC 35.4 g/dL (31.0-37.0); MCV 83.1 fL (80.0-100.0); MEAN PLATELET VOLUME 9.2 fL (7.4-10.4); MONOCYTES 8.2 % (2-11); PLATELET COUNT 330 10x3/uL (130-400); RBC 3.91 10x6/uL (4.00-5.40); RDW 13.1 % (11.5-14.5); WBC 12.4 10x3/uL (4.8-10.8)
[2019-01-24 06:52] LABS: ALBUMIN 3.4 g/dL (3.4-5.0); ALKALINE PHOSPHATASE 41 U/L (46-116); ALT (SGPT) 14 U/L (10-68); BILIRUBIN - TOTAL 1.32 mg/dL (0.2-1.3); CALC OSMOLALITY 269 mosm/kg (275-300); CALCIUM 8.2 mg/dL (8.5-10.1); CHLORIDE - SERUM 102 mmol/L (98-107); CREATININE - SERUM 0.7 mg/dL (0.6-1.3); GLUCOSE 72 mg/dL (74-106); PROTEIN - SERUM 6.1 g/dL (6.4-8.2); SODIUM 137 mmol/L (136-145); UREA NITROGEN 3 mg/dL (7-18); eGFR NON AFRICAN AMERICAN > 90 mL/min (90-120)
--- NOTE | 2019-01-24 07:32 | NUR ---
AM ROUNDS- PT RESTING COMFORTABLY IN BED WITH EYES CLOSED, EASILY AROUSES TO VOICE. PT A/O X4, RESP EVEN AND NONLABORED ON RA. MONITOR SHOWING SR WITH RATE OF 65. LT FA INFUSING NS AT 125CC/HR. PT DENIES ANY NAUSEA/VOMITING OR ABD PAIN AT THIS TIME. CALL LIGHT IN REACH, BEDSIDE RAILS X2, NAD NOTED, WILL CONTINUE PLAN OF CARE.
[2019-01-24 08:58] VITALS: BP 123/72
--- NOTE | 2019-01-24 09:05 | NUR ---
IVPB FLAGYL HUNG AT THIS TIME. PT RESTING COMFORTALY IN BED, DENIES ANY NEED AT THIS TIME. CALL LIGHT IN REACH, NAD NOTED, WILL CONITNUE TO MONITOR.
--- NOTE | 2019-01-24 10:44 | NUR ---
IVPB LEVAQUIN HUNG AT THIS TIME. ALSO GAVE 40MEQ OF K FOR LOW K OF 3.0 PT DENIES ANY NEEDS AT THIS TIME. CALL LIGHT IN REACH, NAD NOTED, WILL CONTINUE TO MONITOR.
[2019-01-24 12:30] VITALS: BP 144/97
[2019-01-24] MEDS ORDERED: LEVAQUIN750 MG PO (13:34)
[2019-01-24] MEDS ORDERED: FLAGYL500 MG PO (13:35)
--- NOTE | 2019-01-24 14:05 | NUR ---
CALL TO GI OFFICE TO HAVE YANET HERNANDEZ CONTACT US FOR BRANDY TO BE CALLED IN. AWAITING CALL BACK.
--- NOTE | 2019-01-24 14:22 | NUR ---
YANET HERNANDEZ APN HERE WITH NEW ORDERS FROM [facility]. THIS IS CALLED TO [facility] [phone].
[2019-01-24] MEDS ORDERED: REGLAN5 MG PO (14:33)
--- NOTE | 2019-01-24 14:54 | NUR ---
PROVIDED VERBAL AND WRITTEN DISCHARGE TEACHING TO PT WHO VERBALIZED UNDERSTANDING REGARDING TEACHING. D/C LT FA IF WITH CATHETER TIP INTACT. PT LEFT UNIT WITH ALL BELONGINGS, NAD NOTED.
--- NOTE | 2019-01-24 14:58 | MORECARE ---
CASE MANAGEMENT DISCHARGE SUMMARY PATIENT: EZRA WILKS UNIT: [id number] ADM DATE: 01/18/19 AGE: 23 : [birth year] SEX: F ROOM/BED: D.8783 AUTHOR: [email or web address] PHYSICIAN: REFERRING PHYSICIAN: DIAMOND LEVINE MD DATE OF SERVICE: 01/24/19 Discharge Plan Patient Name: EZRA WILKS Facility: [facility]:[place] : 1995 Planned Disposition: Home Anticipated Discharge Date: 01/24/19 Discharge Date: Expected LOS: 6 Initial Reviewer: [email or web address] Initial Review Date: 01/18/2019 Generated: 01/24/19 3:57 pm DCP- Discharge Planning Updated by [email or web address]: Lissette Kennedy on 01/19/19 9:[address] Patient Name: EZRA WILKS Admission Status: ER Accout number: [id number] Admission Date: 01-18-2019 : 1995 Admission Diagnosis: Attending: DIAMOND HOLDER Current LOS: 1 Anticipated DC Date: Planned Disposition: Home Primary Insurance: UNINSURED DISCOUNT PLAN Discharge Planning Comments: CM MET WITH PATIENT FOR ASSESSMENT. PT LIVES INDEPENDENTLY WITH SISTER. STATES HOME WILL BE HER DC PLAN AND FEELS LIKE THIS IS A SAFE DC. PT STATES SHE HAS NO CM NEEDS AT THIS TIME. CM WILL CONTINUE TO FOLLOW Patient Information Coordinator: Lissette Kennedy DCPIA - Discharge Planning Initial Assessment Updated by [email or web address]: Lissette Kennedy on 01/19/19 10:31 am * Is the patient Alert and Oriented? Yes * How many steps to enter\exit or inside your home? * PCP NONE * Pharmacy [facility] * Preadmission Environment Home with Family * ADLs Independent * List name and contact numbers for known caregivers / representatives who currently or will assist patient after discharge: MOTHER SUSHANT [phone] * Verbal permission to speak to the caregivers and representatives has been obtained from the patient. N/A * Additional services required to return to the preadmission environment? No * Can the patient safely return to the preadmission environment? Yes * Has this patient been hospitalized within the prior 30 days at any hospital? No Last DP export: 01/19/19 9:38 a Patient Name: EZRA WILKS Page 19715 at 1458 All edits/amendments must be made on the electronic document DICTATION DATE: 01/24/191456 CANDLES POURER: YESENIA 01/24/191456 RPT#: [id number] DC DATE: STATUS: ADM IN [facility] [address] [place] [address] END OF REPORT
[2019-01-28 14:09] LABS: OVA + PARASITE EXAM Final report (())
== END 2019-01-24 15:04 | disposition home or self-care (01) | DRG 392 ==
LOC: D.ER 19:09 → D.M2 22:45
PROVIDERS: Emergency Medicine; Family Medicine; Internal Medicine Nephrology; ADMIT Family Medicine; ATTEND Family Medicine
DX: K31.84 Gastroparesis (principal); N39.0 Urinary tract infection, site not specified; F17.213 Nicotine dependence, cigarettes, with withdrawal; F12.988 Cannabis use, unspecified with other cannabis-induced disorder; E86.0 Dehydration; K21.9 Gastro-esophageal reflux disease without esophagitis; D64.9 Anemia, unspecified; K29.70 Gastritis, unspecified, without bleeding; E83.42 Hypomagnesemia

== ENCOUNTER 2019-05-25 00:03 | Emergency (ER) | payer SELFPAY ==
[~2019-05-25] VITALS: Ht 165.1 cm; Wt 72.7 kg
[~2019-05-25 00:03] MED LIST changes: +FLAGYL500 MG PO; +LEVAQUIN750 MG PO; +REGLAN5 MG PO
[2019-05-25 00:10] VITALS: Ht 165.1 cm; Wt 72.7 kg
[2019-05-25 00:24] LABS: BASOPHILS 0.2 % (0-2); EOSINOPHILS 0.1 % (0-7); HEMATOCRIT 38.3 % (36.0-48.0); HEMOGLOBIN 12.7 g/dL (12-16); IMMATURE GRANULOCYTES 0.2 % (0-5); LYMPHOCYTES 10.2 % (15-50); MCH 29.2 pg (26.0-34.0); MCHC 33.2 g/dL (31.0-37.0); MEAN PLATELET VOLUME 8.9 fL (7.4-10.4); MONOCYTES 3.6 % (2-11); NEUTROPHILS 85.7 % (40-80); RBC 4.35 10x6/uL (4.00-5.40); RDW 12.6 % (11.5-14.5); WBC 12.6 10x3/uL (4.8-10.8)
[2019-05-25 00:25] LABS: PLATELET COUNT 397 10x3/uL (130-400)
[2019-05-25 00:31] LABS: CALC OSMOLALITY 285 mosm/kg (275-300); CARBON DIOXIDE 25.9 mmol/L (21.0-32.0); CHLORIDE - SERUM 103 mmol/L (98-107); CREATININE - SERUM 0.7 mg/dL (0.6-1.3); POTASSIUM - SERUM 3.7 mmol/L (3.5-5.1); SODIUM 142 mmol/L (136-145); UREA NITROGEN 17 mg/dL (7-18); eGFR NON AFRICAN AMERICAN > 90 mL/min (90-120)
[2019-05-25 00:33] LABS: GLUCOSE 116 mg/dL (74-106)
[2019-05-25 00:41] LABS: HCG SERUM NEGATIVE (NEGATIVE)
[2019-05-25 00:46] LABS: ALBUMIN 4.3 g/dL (3.4-5.0); ALKALINE PHOSPHATASE 53 U/L (46-116); ALT (SGPT) 18 U/L (10-68); AMYLASE - SERUM 54 U/L (25-115); BILIRUBIN - TOTAL 0.97 mg/dL (0.2-1.3); LIPASE 127 U/L (73-393); PROTEIN - SERUM 8.3 g/dL (6.4-8.2); TROPONIN-I < 0.017 ng/mL (0.000-0.060)
[2019-05-25 00:56] LABS: APPEARANCE CLEAR (CLEAR); BILIRUBIN NEGATIVE (NEGATIVE); COLOR YELLOW (YELLOW); GLUCOSE NEGATIVE (NEGATIVE); KETONE LARGE mg/dL (NEGATIVE); NITRITE NEGATIVE (NEGATIVE); PROTEIN TRACE mg/dL (NEGATIVE); UROBILINOGEN NORMAL (NORMAL)
[2019-05-25 00:57] LABS: BACTERIA NONE SEEN /hpf (NEGATIVE); EPITHELIAL CELLS RARE /hpf (0-5); RED CELLS - URINE 0-5 /hpf (0-5); WHITE CELLS - URINE NSEEN /hpf (NEGATIVE)
[2019-05-25] MEDS ORDERED: ZOFRAN ODT4 MG/UDTAB PO (01:12)
[2019-05-25 01:24] VITALS: BP 112/69
[2019-05-26] MEDS ORDERED: PHENERGAN25 M1 PO (15:44)
== END 2019-05-25 01:26 | disposition home or self-care (01) ==
LOC: D.ER 00:03
PROVIDERS: Family Medicine
DX: B34.9 Viral infection, unspecified (principal); K21.9 Gastro-esophageal reflux disease without esophagitis

== ENCOUNTER 2019-05-26 12:46 | Emergency (ER) | payer SELFPAY ==
[~2019-05-26] VITALS: Ht 165.1 cm; Wt 72.7 kg
[~2019-05-26 12:46] MED LIST changes: +ZOFRAN ODT4 MG/UDTAB PO
[2019-05-26 13:04] VITALS: Ht 165.1 cm; Wt 72.7 kg
[2019-05-26 14:14] LABS: HEMATOCRIT 36.8 % (36.0-48.0); HEMOGLOBIN 12.2 g/dL (12-16); MCHC 33.2 g/dL (31.0-37.0); MCV 87.4 fL (80.0-100.0); RBC 4.21 10x6/uL (4.00-5.40); WBC 10.6 10x3/uL (4.8-10.8)
[2019-05-26 14:15] LABS: MEAN PLATELET VOLUME 9.1 fL (7.4-10.4); PLATELET COUNT 408 10x3/uL (130-400); RDW 40.8 % (11.5-14.5)
[2019-05-26 14:34] LABS: CREATININE - SERUM 0.7 mg/dL (0.6-1.3); GLUCOSE 104 mg/dL (74-106); UREA NITROGEN 14 mg/dL (7-18); eGFR NON AFRICAN AMERICAN > 90 mL/min (90-120)
[2019-05-26 14:35] LABS: ALKALINE PHOSPHATASE 58 U/L (46-116); ALT (SGPT) 22 U/L (10-68); BILIRUBIN - TOTAL 0.93 mg/dL (0.2-1.3); CALC OSMOLALITY 276 mosm/kg (275-300); CARBON DIOXIDE 26.2 mmol/L (21.0-32.0); CHLORIDE - SERUM 103 mmol/L (98-107); POTASSIUM - SERUM 3.4 mmol/L (3.5-5.1); PROTEIN - SERUM 7.7 g/dL (6.4-8.2); SODIUM 138 mmol/L (136-145)
[2019-05-26 14:50] LABS: UDS - AMPHET NEGATIVE QUAL (NEGATIVE); UDS - BARB NEGATIVE QUAL (NEGATIVE); UDS - BENZO NEGATIVE QUAL (NEGATIVE); UDS - COCAINE NEGATIVE QUAL (NEGATIVE); UDS - OPIATE NEGATIVE QUAL (NEGATIVE); UDS - PCP NEGATIVE QUAL (NEGATIVE); UDS - THC POSITIVE QUAL (NEGATIVE)
[2019-05-26 15:00] LABS: AMORPHOUS SEDIMENT >1+ /lpf (NONE SEEN); APPEARANCE CLEAR (CLEAR); BACTERIA MODERATE /hpf (NEGATIVE); BILIRUBIN NEGATIVE (NEGATIVE); COLOR YELLOW (YELLOW); EPITHELIAL CELLS 0-5 /hpf (0-5); GLUCOSE NEGATIVE (NEGATIVE); KETONE NEGATIVE (NEGATIVE); MUCUS <1+ /lpf (NONE SEEN); NITRITE NEGATIVE (NEGATIVE); PROTEIN TRACE mg/dL (NEGATIVE); UROBILINOGEN NORMAL (NORMAL); WHITE CELLS - URINE 0-5 /hpf (NEGATIVE)
[2019-05-26] MEDS ORDERED: PHENERGAN25 M1 PO (15:44)
[2019-05-26 16:14] VITALS: BP 109/66
== END 2019-05-26 16:15 | disposition home or self-care (01) ==
LOC: D.ER 12:46
PROVIDERS: Family Medicine
DX: K31.84 Gastroparesis (principal); R11.2 Nausea with vomiting, unspecified

== ENCOUNTER 2019-06-25 23:43 | Emergency (ER) | payer OTHER ==
[~2019-06-25] VITALS: Ht 165.1 cm; Wt 72.7 kg
[~2019-06-25 23:43] MED LIST changes: +PHENERGAN25 M1 PO
[2019-06-25 23:50] VITALS: Ht 165.1 cm; Wt 72.7 kg
[2019-06-26 00:21] LABS: BASOPHILS 0.1 % (0-2); EOSINOPHILS 0.1 % (0-7); HEMATOCRIT 42.5 % (36.0-48.0); HEMOGLOBIN 14.2 g/dL (12-16); IMMATURE GRANULOCYTES 0.3 % (0-5); LYMPHOCYTES 17.9 % (15-50); MCH 29.3 pg (26.0-34.0); MCHC 33.4 g/dL (31.0-37.0); MCV 87.6 fL (80.0-100.0); MEAN PLATELET VOLUME 8.6 fL (7.4-10.4); MONOCYTES 7.8 % (2-11); NEUTROPHILS 73.8 % (40-80); PLATELET COUNT 473 10x3/uL (130-400); RBC 4.85 10x6/uL (4.00-5.40); RDW 12.8 % (11.5-14.5); WBC 14.8 10x3/uL (4.8-10.8)
[2019-06-26 00:37] LABS: CALC OSMOLALITY 279 mosm/kg (275-300); CALCIUM 9.1 mg/dL (8.5-10.1); CARBON DIOXIDE 28.8 mmol/L (21.0-32.0); CHLORIDE - SERUM 100 mmol/L (98-107); CREATININE - SERUM 0.8 mg/dL (0.6-1.3); GLUCOSE 89 mg/dL (74-106); POTASSIUM - SERUM 3.7 mmol/L (3.5-5.1); SODIUM 140 mmol/L (136-145); UREA NITROGEN 17 mg/dL (7-18); eGFR NON AFRICAN AMERICAN > 90 mL/min (90-120)
[2019-06-26 00:39] LABS: ALBUMIN 4.4 g/dL (3.4-5.0); ALKALINE PHOSPHATASE 56 U/L (46-116); ALT (SGPT) 24 U/L (10-68); BILIRUBIN - TOTAL 1.56 mg/dL (0.2-1.3); LIPASE 74 U/L (73-393); PROTEIN - SERUM 8.5 g/dL (6.4-8.2)
[2019-06-26 00:45] LABS: APPEARANCE HAZY (CLEAR); BILIRUBIN NEGATIVE (NEGATIVE); COLOR YELLOW (YELLOW); GLUCOSE NEGATIVE (NEGATIVE); KETONE LARGE mg/dL (NEGATIVE); NITRITE NEGATIVE (NEGATIVE); PROTEIN 1+ mg/dL (NEGATIVE); UROBILINOGEN NORMAL (NORMAL)
[2019-06-26 00:47] LABS: BACTERIA FEW /hpf (NEGATIVE); EPITHELIAL CELLS 0-5 /hpf (0-5); MUCUS >1+ /lpf (NONE SEEN); RED CELLS - URINE 0-5 /hpf (0-5); WHITE CELLS - URINE 0-5 /hpf (NEGATIVE)
[2019-06-26 00:48] LABS: HCG URINE NEGATIVE (NEGATIVE)
[2019-06-26] MEDS ORDERED: ZOFRAN ODT4 MG/UDTAB PO (02:44)
[2019-06-26] MEDS ORDERED: ULTRAM50 MG PO ×2 (02:44→02:45)
[2019-06-26] MEDS ORDERED: LOMOTIL 2.5-0.1 EAC1 PO (02:44)
[2019-06-26 03:02] VITALS: BP 100/54
== END 2019-06-26 03:03 | disposition home or self-care (01) ==
LOC: D.ER 23:43
PROVIDERS: Family Medicine
DX: A08.4 Viral intestinal infection, unspecified (principal); K52.9 Noninfective gastroenteritis and colitis, unspecified

== ENCOUNTER 2020-03-24 07:24 | Emergency (ER) | payer SELFPAY ==
[~2020-03-24] VITALS: Ht 165.1 cm; Wt 72.7 kg
[~2020-03-24 07:24] MED LIST changes: +LOMOTIL 2.5-0.1 EAC1 PO; +ULTRAM50 MG PO
[2020-03-24 07:52] VITALS: Ht 165.1 cm; Wt 72.7 kg
[2020-03-24 08:32] LABS: BASOPHILS 0.3 % (0-2); EOSINOPHILS 0.8 % (0-7); HEMATOCRIT 37.7 % (36.0-48.0); HEMOGLOBIN 12.5 g/dL (12-16); IMMATURE GRANULOCYTES 0.2 % (0-5); LYMPHOCYTES 11.9 % (15-50); MCH 29.5 pg (26.0-34.0); MCHC 33.2 g/dL (31.0-37.0); MCV 88.9 fL (80.0-100.0); MONOCYTES 4.4 % (2-11); NEUTROPHILS 82.4 % (40-80); RBC 4.24 10x6/uL (4.00-5.40); RDW 13.5 % (11.5-14.5); WBC 14.4 10x3/uL (4.8-10.8)
[2020-03-24 08:38] LABS: PLATELET COUNT 336 10x3/uL (130-400)
[2020-03-24 08:45] LABS: CALC OSMOLALITY 275 mosm/kg (275-300); CALCIUM 8.7 mg/dL (8.5-10.1); CARBON DIOXIDE 25.7 mmol/L (21.0-32.0); CHLORIDE - SERUM 103 mmol/L (98-107); CREATININE - SERUM 0.9 mg/dL (0.6-1.3); GLUCOSE 114 mg/dL (74-106); POTASSIUM - SERUM 3.4 mmol/L (3.5-5.1); SODIUM 137 mmol/L (136-145); UREA NITROGEN 16 mg/dL (7-18); eGFR NON AFRICAN AMERICAN 80 mL/min (90-120)
[2020-03-24 08:54] LABS: ALKALINE PHOSPHATASE 52 U/L (30-120); ALT (SGPT) 13 U/L (10-68); AMYLASE - SERUM 62 U/L (25-115); BILIRUBIN - TOTAL 0.43 mg/dL (0.2-1.3); LIPASE 92 U/L (73-393); PROTEIN - SERUM 7.7 g/dL (6.4-8.2); TROPONIN-I < 0.017 ng/mL (0.000-0.060)
[2020-03-24 10:59] LABS: HCG URINE NEGATIVE (NEGATIVE)
[2020-03-24 11:05] LABS: AMORPHOUS SEDIMENT >1+ LPF (NONE SEEN); BACTERIA FEW HPF (NONE SEEN); BILIRUBIN NEGATIVE (NEGATIVE); EPITHELIAL CELLS 0-5 /hpf (0-5); KETONE NEGATIVE (NEGATIVE); NITRITE NEGATIVE (NEGATIVE); UROBILINOGEN NORMAL mg/dL (< 2); WHITE CELLS - URINE NSEEN HPF (0-4)
[2020-03-24] MEDS ORDERED: PEPCID40 MG PO (12:04)
[2020-03-24] MEDS ORDERED: ZOFRAN ODT4 MG/UDTAB PO (12:04)
[2020-03-24] MEDS ORDERED: REGLAN10 MG PO (12:04)
[2020-03-24] MEDS ORDERED: ULTRAM50 MG PO (12:04)
[2020-03-24 12:33] VITALS: BP 124/71
== END 2020-03-24 12:33 | disposition home or self-care (01) ==
LOC: D.ER 07:24
PROVIDERS: Emergency Medicine
DX: K52.9 Noninfective gastroenteritis and colitis, unspecified (principal); K31.84 Gastroparesis; E87.6 Hypokalemia; D72.829 Elevated white blood cell count, unspecified; R10.10 Upper abdominal pain, unspecified; R73.9 Hyperglycemia, unspecified